=== PATIENT | female | born 1955 | race American Indian/Alaskan Native ===

== ENCOUNTER 2017-03-03 07:24 | Day surgery (SDC) | payer MEDICARE ==
--- NOTE | 2017-03-01 10:45 | Anesthesia Consultation ---
Anesthesia Consult and Med Hx Date of service: 03/01/17 - Airway Anesthetic Teeth Evaluation: Good ROM Head & Neck: Adequate Mental/Hyoid Distance: Adequate Mallampati Class: Class II Intubation Access Assessment: Good - Pulmonary Exam CTA: Yes - Cardiac Exam Cardiac Exam: RRR - Pre-Operative Health Status ASA Pre-Surgery Classification: ASA3 Proposed Anesthetic Plan: General - Pulmonary Hx Smoking: No Hx Asthma: No COPD: No Hx Pneumonia: No Hx Sleep Apnea: No - Cardiovascular System Hx Hypertension: Yes (over 25 yrs) Hx Coronary Artery Disease: No Hx Heart Attack/AMI: No Hx Angina: No Hx Heart Murmur: Yes (functional, no meds required.) - Central Nervous System Hx Seizures: Yes (while in rehab after stroke, never had another) CVA: Yes (2011) Hx Back Pain: Yes (3 displaced discs; pinched sciatic nerve) Hx Psychiatric Problems: No - Gastrointestinal Hx Gastroesophageal Reflux Disease: No - Endocrine Hx Renal Disease: No Hx Liver Disease: No Hx Non-Insulin Dependent Diabetes: No Hx Thyroid Disease: No - Hematic Hx Anemia: No - Other Systems Hx Cancer: No
[2017-03-01 11:13] LABS: Basophils % (Auto) 0.5 % (0.0-1.8); Hematocrit 38.4 % (30.3-42.9); Hemoglobin 12.9 gm/dl (10.1-14.3); Lymphocytes # (Auto) 1.7 K/mm3 (1.2-5.4); Lymphocytes % (Auto) 38.8 % (13.4-35.0); Mean Corpuscular HGB Conc 34 % (30-34); Mean Corpuscular Hemoglobin 30 pg (28-32); Mean Corpuscular Volume 90 fl (79-97); Monocytes # (Auto) 0.3 K/mm3 (0.0-0.8); Monocytes % (Auto) 7.8 % (0.0-7.3); Platelet Count 156 K/mm3 (140-440); Red Blood Count 4.27 M/mm3 (3.65-5.03)
[2017-03-01 11:32] LABS: BUN/Creatinine Ratio 25; Blood Urea Nitrogen 20 mg/dL (7-17); Calcium 9.6 mg/dL (8.4-10.2); Hemolysis Index 1
--- NOTE | 2017-03-01 11:32 | History and Physical Report ---
History of Present Illness Date of examination: 03/01/17 Chief complaint: abnormal uterine ultrasound History of present illness: Pt is a 62 year old -Italian female who presents with an heterogenous thickened endometrium on pelvic ultrasound. An attempt at in- office biopsy was unsuccessful. Past History Past Medical History: hypertension, neurologic (stroke), seizure, high cholesterol, other (morbid obesity, ) Past Surgical History: cholecystectomy, other (L knee arthroscopy) [employer]ENCY OPERATOR History: fibroids Family/Genetic History: diabetes, heart disease, cancer Social history: no significant social history, Medications and Allergies Allergies Allergy/AdvReac Type Severity Reaction Status Date / Time No Known Allergies Allergy Verified 03/01/17 08:50 Home Medications Medication Instructions Recorded Confirmed Last Taken Type Atorvastatin [Lipitor] 80 mg PO DAILY 04/03/14 03/01/17 04/11/14 History Clopidogrel Bisulfate [Plavix] 1 tab PO DAILY 04/03/14 03/01/17 04/06/14 History Ezetimibe [Zetia] 40 mg PO DAILY 04/03/14 03/01/17 04/11/14 History Hydrochlorothiazide [HCTZ] 1 cap PO DAILY 04/03/14 03/01/17 04/12/14 History Losartan [Cozaar] 1 tab PO DAILY 04/03/14 03/01/17 04/13/14 History Active Meds: Active Medications Famotidine (Pepcid) 20 mg PO PREOP NR Stop: 03/03/17 23:00 Lactated Ringer's (Lactated Ringers) 1,000 mls @ 100 mls/hr IV DIRECT MARY Midazolam HCl (Versed) 2 mg IV PREOP NR Stop: 03/03/17 06:01 Review of Systems All systems: negative - Physical Exam Breasts: Positive: deferred Cardiovascular: Regular rate Lungs: Positive: Clear to auscultation Abdomen: Positive: soft (obese ) Extremities: Positive: normal Results Result Diagrams: 03/01/17 10:50 Abnormal lab results 03/01/17 Range/Units 10:50 WBC 4.4 L (4.5-11.0) K/mm3 Lymph % (Auto) 38.8 H (13.4-35.0) % [place] % (Auto) 7.8 H (0.0-7.3) % All other labs normal. Assessment and Plan A: Abnormal endommetrial thickening Morbid Obesity Hypertension H/o Stroke on Plavix- held for surgery Arthritis Fibroid Uterus Family history of endometrial cancer Seizure Disorder P: Proceed with dilation and curettage, hysteroscopy, Myosure endometrial sampling and other indicated procedures.
[~2017-03-03 07:24] MED LIST: ANCEF/STERILE WATER 2 GM/20 ML 2 GM/20 ML SYRINGE IV NR; LACTATED RINGERS 1,000 ML IV SCH; PEPCID PO NR; VERSED IV NR
[2017-03-03] MEDS ORDERED: DILAUDID ONE (09:06)
[2017-03-03] MEDS ORDERED: DIPRIVAN 10 MG/ML IV ONE (09:07)
[2017-03-03] MEDS ORDERED: ROBINUL ONE (09:10)
[2017-03-03] MEDS ORDERED: XYLOCAINE MPF 2% ONE (09:10)
--- NOTE | 2017-03-03 09:12 | Anesthesia Day of Surgery ---
Anesthesia Day of Surgery - Day of Surgery Patient Examined: Yes Patient H&P Reviewed: Yes Patient is NPO: Yes
[2017-03-03] MEDS ORDERED: NACL BACTERIOSTATIC INFILTRATI ONE (09:28)
[2017-03-03] MEDS ORDERED: SUBLIMAZE ONE (09:52)
[2017-03-03] MEDS ORDERED: VERSED IV NR (10:00)
[2017-03-03] MEDS ORDERED: DECADRON ONE (10:12)
[2017-03-03] MEDS ORDERED: ZOFRAN ONE ×2 (10:12→11:07)
[2017-03-03] MEDS ORDERED: ePHEDrine SULFATE ONE (10:31)
[2017-03-03] MEDS ORDERED: NEO SYNEPHRINE ONE (10:36)
[2017-03-03] MEDS ORDERED: NACL 0.9% 100 ML ONE (10:36)
[2017-03-03] MEDS ORDERED: NACL 0.9% IR ONE (10:41)
[2017-03-03] MEDS ORDERED: SILVER NITRATE TP ONE ×2 (11:00→11:01)
--- NOTE | 2017-03-03 11:24 | Operative Report ---
Operative Report Operative Report: Date of procedure: March 03, 2017 Preoperative diagnosis: #1 Abnormally thickened endometrium on ultrasound #2 Morbid Obesity Postoperative diagnosis: Same #3 Endometrial Polyp Procedure: #1 Hysteroscopy #2 Endometrial polypectomy with Myosure Surgeon: Roz Doe M.D. Anesthesia: Gen. anesthesia with LMA Findings: #1 Small anteverted uterus which sounded to 7 cm #2 Endometrial polyp noted extending from the right cornua; otherwise atrophic appearing endometrium Estimated blood loss: 10 mL IVF: 500 mL Urine output: 120 mL prior to the procedure Drains: None Specimens: Endometrial polyp to pathology Disposition: Stable to PACU Indication for procedure: The Patient is a 62year old -[place] who presents for further evaluation of abnormally thickened endometrium on pelvic ultrasound and failed attempt at in-office biopsy. Operation in detail: After the risks, benefits, alternatives, and complications were explained to the patient, she gave informed consent for the procedure. She was subsequently taken to the operating room with her IV noted to be intermittently and placed in the dorsal supine position. Gen. anesthesia was then induced without difficulty. Another IV was started which was noted to be running well. The patient was then placed in the dorsal lithotomy position and prepped and draped in the normal sterile fashion. A timeout was performed. The bladder was then drained with a rubber catheter. An open sided bivalve speculum was placed into the vagina for adequate visualization of the cervix. The anterior lip of the cervix was grasped with single-tooth tenaculum. The uterus was then gently sounded to 7 cm. The cervix was then sequentially dilated to a #19 Guajardo dilator. The hysteroscope was then placed into the uterine cavity with visualization of the endometrial cavity containing an endometrial polyp extending from the right cornua. The Myosure device was used in a standard fashion to perform an endometrial polypectomy which was sent to pathology. At this time all instruments were removed from the endometrial cavity. The single-tooth tenaculum was removed from the cervix and the puncture sites were noted to be hemostatic after use of silver nitrate. At this time all instruments were removed from the vagina and the procedure was ended. The patient was replaced into the dorsal supine position and extubated without difficulty. She was subsequently taken to the PACU in stable condition. All instrument and lap counts were correct 2.
--- NOTE | 2017-03-03 11:29 | Short Stay Summary ---
Short Stay Documentation Date of service: 03/03/17 - History H&P: dictated Social history: no significant social history, - Allergies and Medications Current Medications: Allergies No Known Allergies Allergy (Verified 03/01/17 08:50) Home Medications Medication Instructions Recorded Confirmed Last Taken Type Clopidogrel Bisulfate [Plavix] 1 tab PO DAILY 04/03/14 03/01/17 02/24/17 History Ezetimibe [Zetia] 40 mg PO DAILY 04/03/14 03/03/17 03/02/17 History Losartan [Cozaar] 1 tab PO DAILY 04/03/14 03/03/17 03/03/17 05:00 History Chlorthalidone [Chlorthalidone] 25 mg PO DAILY 03/01/17 03/03/17 03/02/17 History Rosuvastatin Calcium [Rosuvastatin 40 mg PO DAILY 03/01/17 03/03/17 02/23/17 History Calcium] Active Medications Famotidine (Pepcid) 20 mg PO PREOP NR Stop: 03/03/17 23:00 Last Admin: 03/03/17 09:28 Dose: 20 mg Lactated Ringer's (Lactated Ringers) 1,000 mls @ 100 mls/hr IV DIRECT MARY Last Admin: 03/03/17 09:34 Dose: 100 mls/hr Cefazolin Sodium (Ancef/Sterile Water 2 Gm/20 Ml) 2 gm in 20 mls @ 80 mls/hr IV PREOP NR PRN Reason: Protocol Stop: 03/03/22 18:00 Midazolam HCl (Versed) 2 mg IV PREOP NR Stop: 03/03/17 17:00 Last Admin: 03/03/17 09:38 Dose: 2 mg - Physical exam Breasts: deferred - Brief post op/procedure progress note Date of procedure: 03/03/17 Pre-op diagnosis: Thickened Endometrium Post-op diagnosis: other (Endometrial Polyp) Procedure: Hysteroscopy, Myosure endometrial polypectomy Anesthesia: GETA (with LMA ) Findings: 1) Large endometrial polyp extending from the right cornua of the uterus filling the endometrial cavity 2) Uterus sounded to 7 cm Surgeon: RAHEEM DOE Estimated blood loss: minimal Pathology: list (endometrial polyp) Specimen disposition: to lab Condition: stable - Hospital course Hospital course: Pt tolerated the hysteroscopy and endometrial polypectomy well. She was observed in the PACU until she met discharge criteria. She will follow up in two weeks with Dr Doe. - Disposition Condition at discharge: Stable Disposition: DC-01 TO HOME OR SELFCARE - Discharge Diagnoses (1) Endometrial polyp Status: Acute (2) Thickened endometrium Status: Acute (3) H/O: stroke Status: Acute (4) Hypertension Status: Acute Qualifiers: Hypertension type: unspecified Qualified Code(s): I10 - Essential (primary ) hypertension (5) Morbid obesity Status: Acute Short Stay Discharge Plan Activity: other (Nothing in vagina x 4 weeks ) Weight Bearing Status: Full Weight Bearing Diet: regular Follow up with: FIDEL ALMEIDA MD [Primary Care Provider] - 7 Days RAHEEM DOE MD [Staff Physician] - 03/17/17 (call for postoperative exam )
[2017-03-03] MEDS ORDERED: MORPHINE ONE (11:33)
[2017-03-03] MEDS ORDERED: MORPHINE IV PRN (11:33)
--- NOTE | 2017-03-03 11:33 | Post Anesthesia Evaluation ---
- Post Anesthesia Evaluation Patient Participated: Yes Airway Patent: Yes Stable Respiratory Function: Yes Nausea/Vomiting: No Temp > 96.8F: Yes Pain Manageable: Yes Adequeate Hydration: Yes Anesthesia Complications: No Block Receding Appropriately: Not Applicable Patient on Ventilator: No
[2017-03-03] MEDS ORDERED: PERCOCET 5/325 PO ONE (11:45)
[2017-03-03] MEDS ORDERED: PERCOCET 5/325 ONE (11:47)
[2017-03-03 12:58] VITALS: BP 134/90
== END 2017-03-03 13:05 | disposition home or self-care (01) ==
LOC: OR 07:24
PROVIDERS: ATTEND Obstetrics & Gynecology
DX: N84.0 Polyp of corpus uteri (principal); E66.01 Morbid (severe) obesity due to excess calories; I10 Essential (primary) hypertension; E78.00 Pure hypercholesterolemia, unspecified; Z98.890 Other specified postprocedural states; R56.9 Unspecified convulsions
CPT/HCPCS: 36415; 58558; 80048; 85025; 88305; A4217; C1782; J0690; J1100; J2250; J2270; J2370; J2405; J2704; J3010; J7120; J1170

== ENCOUNTER 2019-09-05 08:28 | Day surgery (SDC) | payer MEDICARE, OTHER ==
[~2019-09-05 08:28] MED LIST changes: -ANCEF/STERILE WATER 2 GM/20 ML 2 GM/20 ML SYRINGE IV NR; -LACTATED RINGERS 1,000 ML IV SCH; -PEPCID PO NR; +SODIUM CHLORIDE 0.9% 1000 ML 1,000 ML IV SCH; -VERSED IV NR
--- NOTE | 2019-09-05 09:35 | Anesthesia Consultation ---
Anesthesia Consult and Med Hx Date of service: 09/05/19 - Airway Anesthetic Teeth Evaluation: Good ROM Head & Neck: Adequate Mental/Hyoid Distance: Adequate Mallampati Class: Class III Intubation Access Assessment: Possibly Difficult - Pulmonary Exam CTA: Yes - Cardiac Exam Cardiac Exam: RRR - Pre-Operative Health Status ASA Pre-Surgery Classification: ASA3 Proposed Anesthetic Plan: MAC - Pulmonary Hx Smoking: No Hx Respiratory Symptoms: Yes (hx wheezing x several months; albuterol prn) SOB: No Home Oxygen Therapy: No Hx Sleep Apnea: Yes - Cardiovascular System Hx Hypertension: Yes (took losartan this morning) Hx Heart Attack/AMI: No Hx Percutaneous Transluminal Coronary Angioplasty (PTCA): No - Central Nervous System Hx Seizures: Yes (after CVA; none in recent years. No AEDs.) CVA: Yes (2011; off plavix x7 days) Hx Back Pain: Yes - Gastrointestinal Hx Gastroesophageal Reflux Disease: No - Endocrine Hx Renal Disease: No Hx Liver Disease: No Hx Insulin Dependent Diabetes: No Hx Non-Insulin Dependent Diabetes: No Hx Thyroid Disease: No - Other Systems Hx Cancer: No Hx Obesity: Yes (BMI 45) - Additional Comments Anesthesia Medical History Comments: Patient reports chronic wheezing/congestion for several months which is managed by her PCP with prn albuterol. Per patient, no official diagnosis of asthma or other lung disease. States that she has not been tested for COVID however symptoms pre-date coronavirus pandemic and have been unchanged since.
--- NOTE | 2019-09-05 09:36 | Anesthesia Day of Surgery ---
Anesthesia Day of Surgery - Day of Surgery Patient Examined: Yes Patient H&P Reviewed: Yes Patient is NPO: Yes
[2019-09-05] MEDS ORDERED: propofoL 200 MG/20 ML VIAL IV ONE ×2 (10:02)
--- NOTE | 2019-09-05 10:36 | Short Stay Summary ---
Short Stay Documentation Date of service: 09/05/19 - History H&P: obtained from office - Allergies and Medications Current Medications: Allergies No Known Allergies Allergy (Verified 03/01/17 08:50) Home Medications Medication Instructions Recorded Confirmed Last Taken Type Clopidogrel Bisulfate [Plavix] 1 tab PO DAILY 04/03/14 09/05/19 08/29/19 History Ezetimibe [Zetia] 40 mg PO DAILY 04/03/14 09/05/19 09/05/19 History Losartan [Cozaar] 1 tab PO DAILY 04/03/14 09/05/19 09/05/19 07:00 History Chlorthalidone 25 mg PO DAILY 03/01/17 09/05/19 09/04/19 History Rosuvastatin Calcium 40 mg PO DAILY 03/01/17 09/05/19 09/03/19 20:00 History Celecoxib [celeBREX] 1 tab PO DAILY 09/05/19 09/05/19 09/03/19 History Cyclobenzaprine [Flexeril] 10 mg PO TID PRN 09/05/19 09/05/19 09/03/19 History Gabapentin 300 mg PO BID 09/05/19 09/05/19 09/04/19 History Active Medications Sodium Chloride (Nacl 0.9% 1000 Ml) 1,000 mls @ 50 mls/hr IV DIRECT MARY Last Admin: 09/05/19 10:15 Dose: 50 mls/hr Documented by: - Brief post op/procedure progress note Date of procedure: 09/05/19 Findings: see dictation Estimated blood loss: none Pathology: none Condition: stable - Disposition Condition at discharge: Good Disposition: DC-01 TO HOME OR SELFCARE - Discharge Diagnoses (1) History of colonic polyps Status: Acute Short Stay Discharge Plan Activity: other (no driving for 24 hours) Weight Bearing Status: Weight Bear as Tolerated Diet: regular Follow up with: FIDEL ALMEIDA MD [Primary Care Provider] - 7 Days
--- NOTE | 2019-09-05 10:41 | Operative Report ---
Operative Report Operative Report: Date of procedure: 09/05/2019 Preprocedure diagnosis: History of colon polyps and family history of colon can cer, mother age 47. Post procedure diagnosis: Moderate diverticulosis. Surgical anastomosis in the sigmoid colon. No recurrent polyps. Procedure: Colonoscopy to the cecum Endoscopist: Dr. Wellington Anesthesia: Monitored anesthesia care per anesthesia department Estimated blood loss: 0 Medications: Monitored anesthesia care. See separate report by anesthesia for details. After careful discussion of the nature and purpose of the procedure as well as details of the technique risks benefits and alternatives the patient gave consent. Please see recent history and physical from the office. The patient was placed in the left lateral decubitus position and medicated per anesthesia. A rectal exam was performed sphincter tone was normal there were no masses palpable. The uBankn 570 scope was passed transanally and advanced under continuous direct vision without difficulty to the cecum. The colon was well prepared. The cecum was normal. The ascending colon revealed a few diverticula but otherwise was normal and on forward and retroflexed views. The transverse colon and descending colon revealed a few scattered diverticula. There was moderate diverticulosis of the sigmoid colon and an end-to-side anastomosis present at approximately 30 cm from the anus. Multiple diverticula were noted within the blind end of the anastomosis. The rectum was normal on forward and retroflexed views. The procedure was well-tolerated overall and the patient was observed in recovery. Conclusions: Moderate diverticulosis. Evidence of left colectomy and anastomosis. No recurrent polyps.. Plan: Follow-up colonoscopy in 5 years. Signed electronically: Jey Wellington M.D.
[2019-09-05 11:21] VITALS: BP 148/89
--- NOTE | 2019-09-05 12:52 | Post Anesthesia Evaluation ---
- Post Anesthesia Evaluation Patient Participated: Yes Airway Patent: Yes Stable Respiratory Function: Yes Nausea/Vomiting: No Temp > 96.8F: Yes Pain Manageable: Yes Adequeate Hydration: Yes Anesthesia Complications: No
== END 2019-09-05 08:29 | disposition home or self-care (01) ==
LOC: GIO 08:28
PROVIDERS: ATTEND Internal Medicine Gastroenterology
DX: Z12.11 Encounter for screening for malignant neoplasm of colon (principal); K57.30 Diverticulosis of large intestine without perforation or abscess without bleeding; I10 Essential (primary) hypertension; E66.01 Morbid (severe) obesity due to excess calories; E78.00 Pure hypercholesterolemia, unspecified; G47.30 Sleep apnea, unspecified; M19.90 Unspecified osteoarthritis, unspecified site; Z86.010 Personal history of colon polyps; Z80.0 Family history of malignant neoplasm of digestive organs; Z98.890 Other specified postprocedural states; Z93.3 Colostomy status; Z83.71 Family history of colonic polyps; Z68.42 Body mass index [BMI] 45.0-49.9, adult; Z79.899 Other long term (current) drug therapy; Z90.49 Acquired absence of other specified parts of digestive tract; Z86.73 Personal history of transient ischemic attack (TIA), and cerebral infarction without residual deficits
CPT/HCPCS: 45378; J2704; J7030